=== PATIENT | female | born 1950 | race Caucasian/White ===

== ENCOUNTER 2023-09-13 13:53 | Outpatient (CLI) | payer MEDICARE, BC, SELFPAY | END 2023-09-13 13:54 | disposition home or self-care (01) | LOC: RAD 13:55 | PROVIDERS: PCP Family Medicine; Visit Provider Hospitalist | DX: C50.411 Malignant neoplasm of upper-outer quadrant of right female breast (principal); I51.9 Heart disease, unspecified | CPT/HCPCS: 93306 ==